=== PATIENT | female | born 1945 | race Caucasian/White ===

== ENCOUNTER → 2022-05-05 | Day surgery (SDC) | payer MEDICARE, OTHER ==
[~2022-05-05] VITALS: Ht 152.4 cm; Wt 83.9 kg
[~2022-05-05] MED LIST: AMLODIPINE BESYL5 MG PO; ARMOUR THYROID60 MG PO; CALCIUM 600-VI1 EAC3 PO; CLARITIN10 MG PO; CLOBETASOL PROP15 GM T; ESTRACE 0.01%42.5 GM V; FOSAMAX70 M1 PO; LISINOPRIL40 MG PO; LOMOTIL 2.5-0.1 EACH PO; LOVASTATIN40 MG PO; METOPROLOL SUCC50 M1 PO; MULTIVITAMIN1 EACH PO; TART CHERRY E1000 MG PO; VITAMIN D3 MA125 MC1 PO; VITAMIN E180 M1 PO
[2022-05-05 11:00] VITALS: BP 141/64
[2022-05-05 12:57] VITALS: BP 147/61
[2022-05-05 13:12] VITALS: BP 129/61
[2022-05-05 13:27] VITALS: BP 147/63
== END | disposition home or self-care (01) ==
LOC: SDC 04-02 11:45
PROVIDERS: ATTEND Ophthalmology
DX: H25.811 Combined forms of age-related cataract, right eye (principal); I10 Essential (primary) hypertension; E78.00 Pure hypercholesterolemia, unspecified; Z90.710 Acquired absence of both cervix and uterus; Z88.1 Allergy status to other antibiotic agents; Z98.890 Other specified postprocedural states; Z79.899 Other long term (current) drug therapy

== ENCOUNTER → 2022-06-02 | Day surgery (SDC) | payer MEDICARE, OTHER ==
[~2022-06-02] VITALS: Ht 152.4 cm; Wt 82.6 kg
[~2022-06-02] MED LIST changes: +OCUFLOX 0.3% 5 M5 ML OP; +PRED FORTE5 ML OP; +TOBRAMYCIN5 ML OP
[2022-06-02 09:15] VITALS: BP 144/69
[2022-06-02 11:00] VITALS: BP 153/69
[2022-06-02 11:15] VITALS: BP 159/68
[2022-06-02 11:30] VITALS: BP 157/63
== END | disposition home or self-care (01) ==
LOC: SDC 05-28 08:45
PROVIDERS: ATTEND Ophthalmology
DX: H25.812 Combined forms of age-related cataract, left eye (principal); I10 Essential (primary) hypertension; K21.9 Gastro-esophageal reflux disease without esophagitis; K58.9 Irritable bowel syndrome, unspecified; E78.00 Pure hypercholesterolemia, unspecified; Z90.710 Acquired absence of both cervix and uterus; Z98.890 Other specified postprocedural states; Z79.899 Other long term (current) drug therapy